=== PATIENT | male | born 1985 | race Caucasian/White ===

== ENCOUNTER 2020-05-03 08:55 | Outpatient (REF) | payer OTHER, SELFPAY ==
--- NOTE | 2020-05-03 09:01 | XR_ITS ---
EXAMINATION: XR SHOULDER, RIGHT CLINICAL INFORMATION: Right shoulder pain. COMPARISON: None TECHNIQUE: AP external rotation, Grashey, scapular Y, and axillary views of the right shoulder. FINDINGS: The bones and soft tissues are normal. No fracture. Glenohumeral and acromioclavicular alignment is anatomic with normal joint space. No abnormal soft tissue calcifications. XR/XR shoulder RT min 2V IMPRESSION: Unremarkable examination.
== END 2020-05-03 08:56 | disposition home or self-care (01) ==
LOC: HO.XRAY 08:55
PROVIDERS: Visit Provider Internal Medicine
DX: M25.511 Pain in right shoulder (principal)
CPT/HCPCS: 73030

== ENCOUNTER 2020-08-26 23:01 | Emergency (ER) | payer OTHER, SELFPAY ==
[2020-08-26 23:16] VITALS: BP 130/89; PULSE 79; RESP 18; TEMP 36.7; O2SAT 98; BMI 39.2
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
[2020-08-27] MEDS: traMADoL HCL 50 MG TABLET PO (00:53)
[2020-08-27] MEDS: Cyclobenzaprine HCl 10 MG TABLET PO (00:54)
== END 2020-08-27 00:58 | disposition home or self-care (01) ==
PROVIDERS: Emergency Provider Internal Medicine; PCP Internal Medicine
DX: S39.012A Strain of muscle, fascia and tendon of lower back, initial encounter (principal); X50.0XXA Overexertion from strenuous movement or load, initial encounter; Y93.89 Activity, other specified; Y92.481 Parking lot as the place of occurrence of the external cause; Y99.9 Unspecified external cause status
CPT/HCPCS: 99283; 99284

== ENCOUNTER 2022-09-15 13:34 | Emergency (ER) | payer OTHER, SELFPAY ==
[2022-09-15 13:43] VITALS: BP 142/78; PULSE 76; RESP 20; TEMP 36.4; O2SAT 100; BMI 42.0
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
== END 2022-09-15 15:27 | disposition home or self-care (01) ==
PROVIDERS: Emergency Provider Emergency Medicine
DX: H61.22 Impacted cerumen, left ear (principal); Z87.891 Personal history of nicotine dependence
CPT/HCPCS: 69209; 99282; 99283

== ENCOUNTER 2022-11-22 16:32 | Outpatient (AMB) | payer OTHER, SELFPAY ==
[2022-11-22 16:33] VITALS: BP 118/70; PULSE 59; O2SAT 97; BMI 44.6
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
== END 2022-11-22 17:02 | disposition home or self-care (01) ==
PROVIDERS: Visit Provider Internal Medicine
DX: Z00.00 Encounter for general adult medical examination without abnormal findings (principal); F39 Unspecified mood [affective] disorder; Z79.899 Other long term (current) drug therapy; E66.01 Morbid (severe) obesity due to excess calories; Z68.41 Body mass index [BMI] 40.0-44.9, adult; M21.611 Bunion of right foot; M25.511 Pain in right shoulder; G47.00 Insomnia, unspecified; M25.512 Pain in left shoulder
CPT/HCPCS: 99395

== ENCOUNTER 2022-11-27 12:06 | Outpatient (REF) | payer OTHER, SELFPAY ==
[2022-11-27 12:24] LABS: MANUAL DIFF FLAG NO
[2022-11-27 12:55] LABS: Appearance Urine Clear; Color Urine Yellow; Glucose Urine UA Negative (Negative); Leukocyte Esterase Urine Negative (Negative); Nitrite Urine Negative (Negative); PH 6.5 (5.0-9.0); Urine Blood Negative (Negative); Urine Ketones Negative (Negative); Urine Protein Negative (Neg-Trace)
[2022-11-27 12:59] LABS: Basophils Percent Auto 0.5 % (0-2); Eosinophils Absolute Auto 0.4 X10*3/uL (0.0-0.4); Eosinophils Percent Auto 7.1 % (0-4); Hematocrit 44.3 % (42.0-52.0); Imm Gran Abs Auto 0.02 X10*3/uL (0.00-0.03); Imm Gran Pct Auto 0.3 % (0.0-0.4); Lymphocytes Absolute Auto 1.1 X10*3/uL (1.2-4.9); Lymphocytes Percent Auto 18.4 % (20-40); Mean Corpuscular HGB Conc 33.9 g/dl (31.0-36.0); Mean Corpuscular Hemoglobin 30.5 pg (27.0-33.0); Mean Platelet Volume 11.5 fL (9.4-12.4); Monocytes Absolute Auto 0.4 X10*3/uL (0.1-1.2); Monocytes Percent Auto 6.6 % (2-11); Neutrophils Absolute Auto 3.9 x10*3/uL (2.0-8.3); Neutrophils Percent Auto 67.1 % (45-73); Platelet Count 210 X10*3/uL (160-400); Red Blood Count 4.92 X10*6/uL (4.60-5.80); Red Cell Distribution Width 12.8 % (11.0-16.0); White Blood Count 5.8 X10*3/uL (4.8-10.8)
[2022-11-27 13:54] LABS: Alanine Aminotransferase 24 U/L (0-40); Albumin Level 3.8 g/dL (3.5-5.0); Alkaline Phosphatase 70 U/L (39-117); Anion Gap 8 (12-20); Aspartate Amino Transferase 21 U/L (5-37); Bilirubin Total 0.5 mg/dL (0.0-1.0); Blood Urea Nitrogen 8 mg/dL (9-16); Calcium 8.6 mg/dL (8.4-10.2); Carbon Dioxide 26 mmol/L (22-29); Chloride 110 mmol/L (96-108); Cholesterol 146 mg/dL (<200); Estimated Glomerular Filt Rate > 60; Glucose Fasting 103 mg/dL (60-99); HDL Cholesterol 32 mg/dL (>40); LDL Cholesterol Calculated 86 mg/dL (<100); Sodium 140 mmol/L (135-145); Total Protein 6.6 g/dL (6.5-8.0); Triglycerides 144 mg/dL (<150)
[2022-11-27 14:12] LABS: TSH reflex Free T4 0.99 uIU/mL (0.32-4.0); Vitamin D 25-OH Total 32.8 ng/mL (>30)
== END 2022-11-27 12:07 | disposition home or self-care (01) ==
LOC: HO.LAB 12:06
PROVIDERS: PCP Internal Medicine; Visit Provider Internal Medicine
DX: Z00.00 Encounter for general adult medical examination without abnormal findings (principal); E78.00 Pure hypercholesterolemia, unspecified; R30.0 Dysuria; E55.9 Vitamin D deficiency, unspecified; E66.01 Morbid (severe) obesity due to excess calories; Z68.41 Body mass index [BMI] 40.0-44.9, adult
CPT/HCPCS: 36415; 80053; 80061; 81003; 82306; 84443; 85025

== ENCOUNTER 2023-02-26 16:54 | Outpatient (AMB) | payer OTHER, SELFPAY ==
[2023-02-26 17:01] VITALS: BP 122/80; PULSE 72; O2SAT 98; BMI 45.7
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
== END 2023-02-26 17:47 | disposition home or self-care (01) ==
PROVIDERS: Visit Provider Internal Medicine
DX: F39 Unspecified mood [affective] disorder (principal); E66.01 Morbid (severe) obesity due to excess calories; Z68.41 Body mass index [BMI] 40.0-44.9, adult; M21.611 Bunion of right foot; M25.511 Pain in right shoulder; M25.512 Pain in left shoulder; G47.00 Insomnia, unspecified; Z79.899 Other long term (current) drug therapy; F41.9 Anxiety disorder, unspecified
CPT/HCPCS: 99214

== ENCOUNTER 2025-03-23 06:46 | Emergency (ER) | payer OTHER, SELFPAY ==
[2025-03-23 06:51] VITALS: BP 128/71; PULSE 75; RESP 17; TEMP 36.2; O2SAT 99; BMI 41.7
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
[2025-03-23] MEDS: Acetaminophen Oral Liquid 650 MG/20.3 ML SOLUTION PO (07:28)
--- OUTSIDE RECORDS SUMMARY | 2025-03-23 07:30 | XMS_ITS | Clinical Summary ---
Author Organization [facility] Address [address] [place] [address] Care Team Providers Care Ticket Marker Name Role Phone Unavailable Primary Care Provider Unavailabl e Allergies No known active allergies Medications morphine (MSIR) 15 MG tablet Take 0.5-1 tablets (7.5-15 mg total) by mouth 4 times daily (every 6 hours) as needed for moderate pain or severe pain. Max Daily Amount: 60 mg 6 tablet 03/22/2020 Active Social History Tobacco Use Types Packs/Day Years Used Date Smoking Tobacco: Never Assessed Sex and Gender Information Value Date Recorded Sex Assigned at Not on file Legal Sex Male 6:59 PM EST Gender Identity Not on file Sexual Orientation Not on file Last Filed Vital Signs Vital Sign Reading Time Taken Comments Blood Pressure 113/75 03/22/2020 7:09 AM EST Pulse 98 03/22/2020 7:09 AM EST Temperature 36.6 C (97.8 F) 03/22/2020 7:09 AM EST Respiratory Rate 18 03/22/2020 7:09 AM EST Oxygen Saturation 92% 03/22/2020 7:09 AM EST Inhaled Oxygen Concentration - - Weight - - Height - - Body Mass Index - - Plan of Treatment Health Maintenance Due Date Last Done Comments Hepatitis C Virus Screening 1987 HIV Screening 08/18/2000 DTaP/Tdap/Td Vaccines (1 - Tdap) 08/18/2006 Hepatitis B Vaccines (1 of 3 - 19+ 3-dose series) 08/18/2006 Influenza Vaccine 10/31/2024 COVID-19 Vaccine ( - 2024-2 6 season) 2024 HPV Vaccines (No Doses Required) Completed Pneumococcal Vaccine: Pediat angel (0-5 Years) and At-Risk Patients (6 to 49 Years) Aged Out No longer eligible b ased on patient's age to complete this topic Insurance MEDICAID [place] [facility] [place]
[2025-03-23 07:39] LABS: IDNOW Serial# 58CA691E; Strep A Nucleic Acid Negative (Negative)
[2025-03-23 08:09] LABS: Resp Syncy Virus RNA Qual PCR NEGATIVE (Negative); SARS COV2 PCR INHOUSE NEGATIVE (Negative)
[2025-03-23 08:30] VITALS: BP 128/71; PULSE 75; RESP 17; TEMP 36.2; O2SAT 99
== END 2025-03-23 08:30 | disposition home or self-care (01) ==
PROVIDERS: Emergency Provider Emergency Medicine; PCP Internal Medicine
DX: J03.90 Acute tonsillitis, unspecified (principal); Z03.818 Encounter for observation for suspected exposure to other biological agents ruled out; F41.9 Anxiety disorder, unspecified
CPT/HCPCS: 87637; 87651; 99283; J1100